=== PATIENT | male | born 1940 | race African-American/Black ===

== ENCOUNTER 2017-07-07 17:02 | Emergency (ER) | payer OTHER ==
[~2017-07-07] VITALS: Ht 180.3 cm; Wt 108.0 kg
[~2017-07-07 17:02] MED LIST: ASA5UEC PO; ASPIRIN EC325 M1 PO; COZAAR 50 MG TA50 M2 PO; FINASTERIDE5 MG PO; FLEXERIL PO; FLOMAX0.4 MG PO; HYDROCODON-ACE1 EACH PO; IBUPROFEN 800800 M1 PO; LISINOPRIL10 MG; LISINOPRIL20 MG PO; MOBIC15 MG PO; NOHOMEMEDICATIONS; NORCO 5-325 TA1 EACH PO; NORVASC10 MG PO; NORVASC5 MG PO; ZOCOR20 MG PO
[2017-07-07] MEDS ORDERED: DOXYCYCLINE 10100 MG PO (17:29)
== END 2017-07-07 17:35 | disposition home or self-care (01) ==
LOC: ER 17:02
DX: I96 Gangrene, not elsewhere classified (principal); I10 Essential (primary) hypertension; M19.90 Unspecified osteoarthritis, unspecified site; F29 Unspecified psychosis not due to a substance or known physiological condition; Z90.49 Acquired absence of other specified parts of digestive tract; Z88.2 Allergy status to sulfonamides

== ENCOUNTER 2017-10-29 10:34 | Emergency (ER) | payer OTHER ==
[~2017-10-29] VITALS: Ht 180.3 cm; Wt 108.9 kg
--- NOTE | ~2017-10-29 | EKG ---
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 : 1940 Requested By: Benjamín Villafana Order Number: [id number] MD: Chago Greene Measurements Intervals [place] Rate: 54 P: 42 MA: 191 QRS: -46 QRSD: 147 T: 2 QT: 478 QTc: 453 Interpretive Statements Sinus bradycardia RBBB and LAFB Compared to ECG 03/24/2015 17:15:23 Left anterior fascicular block now present Right bundle-branch block now present Electronically Signed On 10-29-2017 17:08:15 CDT by Chago Greene [email or web address] <ELECTRONICALLY SIGNED> By: Chago Greene MD, [facility] 10/29/17 1708 1043 1043 Chago Greene MD, [facility] /EPI
[~2017-10-29 10:34] MED LIST changes: +DOXYCYCLINE 10100 MG PO; +PREDNISONE50 MG PO
[2017-10-29] MEDS ORDERED: LOSARTAN-HCTZ1 EACH PO (10:50)
[2017-10-29] MEDS ORDERED: AMOX TR-K CLV1 EAC4 PO (10:51)
[2017-10-29] MEDS ORDERED: VENTOLIN HFA 1818 GM INH (10:51)
[2017-10-29 11:32] LABS: ABSOLUTE NEUTROPHILS 6.7 thou/uL (1.4-8.2); BASOPHILS 0.3 % (0.0-2.0); HEMATOCRIT 40.3 % (42.0-52.0); HEMOGLOBIN 14.3 gm/dL (14.0-18.0); MCH 31.5 pg (26.0-34.0); MCHC 35.5 g/dL (28.0-37.0); MCV 88.7 fL (80.0-100.0); MONOCYTES 1.8 % (1.0-8.0); PLATELET COUNT 193 thou/uL (150-400); POLYS 76.9 % (36.0-66.0); RBC 4.55 mil/uL (4.50-6.00); RDW 14.2 % (10.5-14.5); WBC 8.7 thou/uL (4.0-11.0)
[2017-10-29 11:41] LABS: ANION GAP 5 mmol/L (7-16); BUN 20 mg/dL (7-18); CALCIUM 9.4 mg/dL (8.5-10.1); CHLORIDE 104 mmol/L (98-107); CO2 27 mmol/L (21-32); CREATININE 0.9 mg/dL (0.7-1.3); GLUCOSE 155 mg/dL (74-106); SODIUM 136 mmol/L (136-145)
[2017-10-29 11:49] LABS: TROPONIN-I <0.06 ng/mL (<0.06)
== END 2017-10-29 11:45 | disposition home or self-care (01) ==
LOC: ER 10:34
PROVIDERS: Physician Assistant
DX: J20.9 Acute bronchitis, unspecified (principal); M25.561 Pain in right knee; G89.29 Other chronic pain; I10 Essential (primary) hypertension; E78.00 Pure hypercholesterolemia, unspecified; M19.90 Unspecified osteoarthritis, unspecified site; Z86.73 Personal history of transient ischemic attack (TIA), and cerebral infarction without residual deficits; Z90.89 Acquired absence of other organs; Z87.891 Personal history of nicotine dependence; Z88.2 Allergy status to sulfonamides; Z88.8 Allergy status to other drugs, medicaments and biological substances

== ENCOUNTER 2020-07-17 14:29 | Emergency (ER) | payer OTHER ==
[~2020-07-17] VITALS: Ht 180.3 cm; Wt 90.7 kg
[~2020-07-17 14:29] MED LIST changes: +AMOX TR-K CLV1 EAC4 PO; +LOSARTAN-HCTZ1 EACH PO; +VENTOLIN HFA 1818 GM INH
[2020-07-17 14:46] LABS: ABSOLUTE NEUTROPHILS 4.4 thou/uL (1.4-8.2); BASOPHILS 0.5 % (0.0-2.0); EOSINOPHILS 1.4 % (0.0-3.0); HEMATOCRIT 41.7 % (42.0-52.0); HEMOGLOBIN 14.2 gm/dL (14.0-18.0); LYMPHOCYTES 43.9 % (24.0-44.0); MCH 30.1 pg (26.0-34.0); MCHC 34.2 g/dL (28.0-37.0); MCV 88.1 fL (80.0-100.0); MONOCYTES 6.6 % (1.0-8.0); PLATELET COUNT 223 thou/uL (150-400); POLYS 47.6 % (36.0-66.0); RBC 4.73 mil/uL (4.50-6.00); RDW 14.9 % (10.5-14.5); WBC 9.2 thou/uL (4.0-11.0)
[2020-07-17 14:58] LABS: ANION GAP 10 mmol/L (7-16); BUN 13 mg/dL (7-18); CHLORIDE 106 mmol/L (98-107); CO2 24 mmol/L (21-32); CREATININE 1.5 mg/dL (0.7-1.3); GLUCOSE 176 mg/dL (74-106); POTASSIUM 3.1 mmol/L (3.5-5.1); SODIUM 140 mmol/L (136-145)
[2020-07-17 15:07] LABS: ALBUMIN 3.1 g/dL (3.4-5.0); SGOT 11 U/L (15-37); SGPT 12 U/L (16-63); TOTAL BILIRUBIN 0.6 mg/dL (0.2-1.0); TROPONIN-I <0.06 ng/mL (<0.06)
[2020-07-17 16:25] LABS: URINE BILIRUBIN NEGATIVE (Negative); URINE BLOOD NEGATIVE (Negative); URINE CLARITY CLEAR; URINE COLOR YELLOW; URINE GLUCOSE-RANDOM* NEGATIVE (Negative); URINE KETONES NEGATIVE (Negative); URINE NITRITE-REFLEX NEGATIVE (Negative); URINE PROTEIN (DIPSTICK) NEGATIVE (Negative)
[2020-07-17 16:26] LABS: URINE LEUKOCYTES-REFLEX 1+ (Negative)
[2020-07-17 16:39] LABS: BACTERIA-REFLEX >30 Many /HPF (None Seen); CASTS None Seen /LPF (None Seen); RENAL EPITHELIAL CELLS 0-3 Few /LPF (None Seen); SQUAMOUS 0-3 Few /LPF (0-3); URINE RBC None Seen /HPF (0-2)
[2020-07-17 16:40] LABS: CRYSTALS None Seen /LPF (None Seen)
[2020-07-17] MEDS ORDERED: LEVAQUIN 500 M500 MG PO (17:41)
[2020-07-17 18:26] VITALS: BP 174/82
--- NOTE | 2020-07-18 07:24 | EKG ---
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
== END 2020-07-17 18:27 | disposition home or self-care (01) ==
LOC: ER 14:29
PROVIDERS: Emergency Medicine
DX: R55 Syncope and collapse (principal); E86.0 Dehydration; N39.0 Urinary tract infection, site not specified; I10 Essential (primary) hypertension; Z90.49 Acquired absence of other specified parts of digestive tract; Z86.73 Personal history of transient ischemic attack (TIA), and cerebral infarction without residual deficits; Z79.899 Other long term (current) drug therapy; Z87.891 Personal history of nicotine dependence; Z88.2 Allergy status to sulfonamides; Z88.8 Allergy status to other drugs, medicaments and biological substances

== ENCOUNTER 2020-08-06 13:59 | Emergency (ER) | payer OTHER ==
[~2020-08-06] VITALS: Ht 180.3 cm; Wt 113.0 kg
[~2020-08-06 13:59] MED LIST changes: +LEVAQUIN 500 M500 MG PO
[2020-08-06 16:36] VITALS: BP 164/72
== END 2020-08-06 16:45 | disposition left against medical advice (07) ==
LOC: ER 13:59
DX: S40.011A Contusion of right shoulder, initial encounter (principal); S80.01XA Contusion of right knee, initial encounter; I10 Essential (primary) hypertension; M19.90 Unspecified osteoarthritis, unspecified site; F17.210 Nicotine dependence, cigarettes, uncomplicated; Z90.89 Acquired absence of other organs; Z88.1 Allergy status to other antibiotic agents; Z88.2 Allergy status to sulfonamides; Z79.899 Other long term (current) drug therapy; Z79.82 Long term (current) use of aspirin; V49.49XA Driver injured in collision with other motor vehicles in traffic accident, initial encounter; Y93.89 Activity, other specified; Y92.488 Other paved roadways as the place of occurrence of the external cause; Y99.8 Other external cause status

== ENCOUNTER 2021-06-12 14:57 | Emergency (ER) | payer OTHER ==
[~2021-06-12] VITALS: Ht 182.9 cm; Wt 99.8 kg
--- NOTE | ~2021-06-12 | EKG ---
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
[2021-06-12 15:16] LABS: ABSOLUTE NEUTROPHILS 6.7 thou/uL (1.4-8.2); BASOPHILS 0.5 % (0.0-2.0); EOSINOPHILS 0.4 % (0.0-3.0); HEMATOCRIT 39.9 % (42.0-52.0); HEMOGLOBIN 13.6 gm/dL (14.0-18.0); LYMPHOCYTES 29.7 % (24.0-44.0); MCHC 34.1 g/dL (28.0-37.0); MONOCYTES 4.7 % (1.0-8.0); PLATELET COUNT 187 thou/uL (150-400); POLYS 64.7 % (36.0-66.0); RBC 4.53 mil/uL (4.50-6.00); RDW 15.6 % (10.5-14.5); WBC 10.4 thou/uL (4.0-11.0)
[2021-06-12 15:32] LABS: CALCIUM 9.3 mg/dL (8.5-10.1); CREATININE 1.3 mg/dL (0.7-1.3); POTASSIUM 3.6 mmol/L (3.5-5.1)
[2021-06-12 19:36] VITALS: BP 120/63
== END 2021-06-12 19:37 | disposition home or self-care (01) ==
LOC: ER 14:57
PROVIDERS: Emergency Medicine
DX: R42 Dizziness and giddiness (principal); Z20.822 Contact with and (suspected) exposure to COVID-19; I10 Essential (primary) hypertension; M19.90 Unspecified osteoarthritis, unspecified site; Z90.49 Acquired absence of other specified parts of digestive tract; Z79.899 Other long term (current) drug therapy; Z88.2 Allergy status to sulfonamides; Z87.891 Personal history of nicotine dependence